=== PATIENT | male | born 1965 ===

== ENCOUNTER 2023-10-10 08:23 | Emergency (ER) | payer OTHER, SELFPAY ==
[2023-10-10] VITALS (8 sets, daily range): BP systolic 131–156; BP diastolic 85–97; BMI 33.7
--- NOTE | 2023-10-10 08:54 | ED.GENMED ---
History of Present Illness
General
Chief Complaint: Chest Pain
Source: patient
Exam Limitations: none
Time Seen by Provider: 10/10/23 08:41
Travel History
Have you had any contact with someone who has COVID-19?: No
Do you have any symptoms of coronavirus? Fever > 100 degrees, chills, cough, shortness of breath, sore throat, loss of taste or smell, muscle aches, or headache?: No
History of Present Illness
History of Present Illness:
58-year-old male with history of cardiac disease on Plavix metoprolol losartan presents with onset of chest pain around 7 AM today. He was getting his final set up for work. He developed a tightness in the center of his chest that lasted about
1/2-hour. Currently on my exam he denies any discomfort. The pain was resolving by time EMS arrived however they gave him aspirin and nitroglycerin. No recent travel or surgery. No leg swelling or calf pain. He does state that he is under
significant mental stress lately. No nausea or diaphoresis the pain did not radiate. It was described as a chest tightness.
Phy Exam
Physical Exam
Physical Exam:
General: Well-appearing male no acute respiratory distress
HEENT: Normocephalic atraumatic
: Regular rate and rhythm no murmurs
Lungs: Clear to auscultation bilaterally no wheezing
Extremities: No cyanosis or edema
Skin: Warm no rash or lesions
Scores
Heart Score for Chest Pain Patients
STEMI patient?: No
History: Slightly or Non-Suspicious
ECG: Normal
Age: >45 - <65 years
Risk Factors: 1 or 2 Risk Factors
Troponin: </= Normal Limit
Heart Score for Chest Pain Patients: 2
Heart Score Risk: 2.5% MACE over next 6 weeks
Course
Orders/Labs/Results
Orders:
Orders
10/10/23 08:28
Electrocardiogram (*1) Urgent
Reason for Study: Chest Pain
10/10/23 08:29
EKG- Treatment ONCE
10/10/23 08:35
CMP [Comprehensive Metabolic Panel] Urgent
Complete Blood Count/With Diff Urgent
Troponin I Urgent
10/10/23 08:57
CR Chest - 2 Views Urgent
Comment:
Reason For Exam: chest pain
10/10/23 11:01
Electrocardiogram (*1) Urgent
Reason for Study: Chest Pain
Other Reason for Exam: repeat with trop
10/10/23 11:02
EKG- Treatment ONCE
10/10/23 12:40
Troponin I Urgent
10/10/23 12:46
Acetaminophen [Tylenol] 1,000 mg PO NOW STA
Abnormal Lab Results
10/10/23
08:35
MCH 31.7 H pg
(27.0-31.0)
Abs Immat Gran (auto) 0.1 H 10^3/uL
(0-0.05)
Absolute Lymphs (auto) 1.0 L 10^3/uL
(1.2-3.4)
Immature Gran % 0.9 H %
(0-0.5)
Neutrophils % 76.4 H %
(42.2-75.2)
Lymphocytes % 12.6 L %
(20.5-51.1)
Creatinine 0.6 L mg/dL
(0.7-1.3)
Glucose 119 H mg/dl
(70-99)
ALT 57 H U/L
(0-50)
10/10/23 08:35
10/10/23 08:35
Vital Signs
Initial and Last Documented VS:
Initial Vital Signs
Temp Pulse Resp BP Pulse Ox
98.2 F 72 16 147/92 94
10/10/23 08:26 10/10/23 08:26 10/10/23 08:26 10/10/23 08:26 10/10/23 08:26
Last Documented Vital Signs
Temp Pulse Resp BP Pulse Ox
98.2 F 68 18 135/93 94
10/10/23 08:26 10/10/23 13:30 10/10/23 13:30 10/10/23 13:00 10/10/23 13:30
MDM/Problems Addressed
Differential Diagnosis Includes:
Chest pain. Differential could include ACS, atypical otherwise for dissection or PE given resolution of symptoms. Consider stress or chest wall discomfort.
EKG shows sinus rhythm without ischemic changes. Troponin pending. Will order x-ray as well. Currently pain-free
*Critical Care Note
Total Time (30-74mins, 75-104mins- exclusive of procedures): Not Applicable
Update Note
Update Note:
Initial troponin negative repeat pending chest x-ray clear. Patient feeling better. 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 Advise he follow-up with him.
ED Attending Note
-
Portions of this chart may have been created with voice recognition software.� Occasional wrong word or��sound alike� substitutions may have occurred due to the inherent limitations of voice recognition software.
Discharge Plan
Departure
Patient Disposition: Home (Routine Discharge)
Date of Disposition: 10/10/23
Time of Disposition: 13:20
Patient with high blood pressure during this ER visit?: No
Discharge Problem:
Chest pain
Instructions: Chest Pain NON-[facility] Yard Coordinator Follow Up
Referrals:
UNKNOWN - PT DOES,NOT KNOW [Family Provider] -
Activity Restrictions/Additional Instructions:
Please return here for worsening symptoms otherwise follow-up with your electronic equipment set up operator.
Interventions
Interventions:
*Risk Screen - Suicide Last Done: 10/10/23 09:20
*General Assessment Last Done: 10/10/23 08:26
*Neglect/Abuse Screening Last Done: 10/10/23 12:36
ED- Fall Risk Assessment Last Done: 10/10/23 09:20
*ED COVID-19 Vaccine History Last Done: 10/10/23 08:26
*Nursing Disposition Last Done: 10/10/23 13:33
ED- Cardiac Assessment Last Done: 10/10/23 09:20
Discharge Date and Time
Discharge Date/Time: 10/10/23 13:33
[2023-10-10 09:01] LABS: % Basophils 1.1 % (0-2); % Eosinophils 2.2 % (0-6); % Immature Granulocytes 0.9 % (0-0.5); % Lymphocytes 12.6 % (20.5-51.1); % Monocytes 6.8 % (1.7-9.3); % Neutrophils 76.4 % (42.2-75.2); Absolute Basophils 0.1 10^3/uL (0-0.2); Absolute Eosinophils 0.2 10^3/uL (0-0.7); Absolute Immature Granulocytes 0.1 10^3/uL (0-0.05); Absolute Monocytes 0.6 10^3/uL (0.1-0.6); Absolute Neutrophils 6.3 10^3/uL (1.4-6.5); Hematocrit 46.5 % (39.0-52.0); Hemoglobin 16.8 g/dL (13.0-18.0); Mean Corp Hgb Conc. 36.1 g/dL (33.0-37.0); Mean Corpuscular Hgb 31.7 pg (27.0-31.0); Mean Corpuscular Volume 87.7 fL (80.0-94.0); Nucleated Red Blood Cells % 0 % (-); Platelet Count 255 10^3/uL (130-400); Red Cell Dist. Width 11.7 % (11.5-14.5); White Blood Cell Count 8.2 10^3/uL (4.8-10.8)
[2023-10-10 09:10] LABS: Troponin I < 0.012 ng/ml
[2023-10-10 09:22] LABS: ALT (SGPT) 57 U/L (0-50); AST (SGOT) 34 U/L (17-59); Albumin 4.5 g/dl (3.5-5.0); Alkaline Phosphatase 78 U/L (38-126); Blood Urea Nitrogen 19 mg/dl (9-20); Calcium 9.7 mg/dl (8.4-10.2); Carbon Dioxide 26 mmol/L (22-30); Chloride 104 mmol/L (98-107); Estimated Creatinine Clearance > 125 ml/min; Glucose 119 mg/dl (70-99); Sodium 136 mmol/L (135-145); Total Protein 7.1 g/dl (6.3-8.2); eGFR > 60.00
[2023-10-10 13:13] LABS: Troponin I < 0.012 ng/ml
== END 2023-10-10 13:33 | disposition home or self-care (01) ==
LOC: EMR 08:23
PROVIDERS: EMERGENCY PHYSICIAN Emergency Medicine
DX: R07.89 Other chest pain (principal); Z79.02 Long term (current) use of antithrombotics/antiplatelets
CPT/HCPCS: 99285; 71046; 80053; 84484; 85025; 93005